=== PATIENT | female | born 1975 | race Caucasian/White ===

== ENCOUNTER 2019-05-12 11:51 | Emergency (ER) | payer MEDICAID ==
[~2019-05-12] VITALS: Ht 160 cm; Wt 120.2 kg
[2019-05-12 11:57] VITALS: BP_SYST 166
--- NOTE | 2019-05-12 12:03 | NUR ---
Patient to ER bed 5 to gown for evaluation. Side rails up. Report given to Colette BROCK.
--- NOTE | 2019-05-12 12:05 | NUR ---
Patient arrived in the ED c/o of mid-epigastric pain with nausea that started today. She stated she has history of hernia, and this time she was able to puch it back but it took a long time. a&o x4, VS WNL, respirations even and unlabored, denied any c/p or SOB. Able to speak in full sentences. Denied any respiratory distress at this time.
--- NOTE | 2019-05-12 12:10 | NUR ---
ER Dr. Day at bedside examining patient.
[2019-05-12] MEDS ORDERED: KETOROLAC TROMETHAMINE 30 MG VIAL IM ONE (12:15)
--- NOTE | 2019-05-12 12:41 | NUR ---
Administered Toradol 30mg IM as ordered by Dr. Day. Patient tolerated the medication well.
--- NOTE | 2019-05-12 12:44 | NUR ---
Urine specimen dropped off at the lab.
--- NOTE | 2019-05-12 12:52 | NUR ---
Patient off the unit for CT. In stable condition.
--- NOTE | 2019-05-12 12:55 | NUR ---
Report given and care transferred to Jamey Lyon RN.
--- NOTE | 2019-05-12 12:56 | NUR ---
Got report from Katharina.
--- NOTE | 2019-05-12 12:57 | NUR ---
Returned from radiology, back to [facility].
[2019-05-12 13:09] LABS: BILIRUBIN,URINE NEGATIVE (NEGATIVE); BLOOD, URINE 2+ (NEGATIVE); CLARITY/URINE HAZY (CLEAR); COLOR,URINE YELLOW (YELLOW); GLUCOSE,URINE NEGATIVE (NEGATIVE); KETONES,URINE NEGATIVE (NEGATIVE); LEUKOCYTE ESTERASE ,URINE NEGATIVE (NEGATIVE); NITRITE, URINE NEGATIVE (NEGATIVE); PH,URINE 5.5 (5.0-8.0); PROTEIN URINE NEGATIVE (NEGATIVE); UROBILINOGEN,URINE 0.2 (0.2-1.0)
[2019-05-12 13:19] LABS: BACTERIA,URINE FEW /HPF (None Seen); WBC,URINE 0-3 /HPF (0-3)
[2019-05-12 13:20] LABS: MUCUS,URINE 1+ /LPF (None Seen)
[2019-05-12 13:25] LABS: BASOPHILS % (AUTO) 0.5 % (0.0-2.0); EOSINOPHILS % (AUTO) 0.6 % (0.0-4.0); HEMATOCRIT 37.1 % (36-48); HEMOGLOBIN 12.7 g/dL (12.0-16.0); LYMPHOCYTES # (AUTO) 1.8 K/uL (1.0-5.5); LYMPHOCYTES % (AUTO) 22.8 % (20.5-51.5); MEAN CORPUSCULAR HEMOGLOBIN 31 pg (27-31); MEAN CORPUSCULAR HGB CONC 34 % (32-36); MEAN CORPUSCULAR VOLUME 90 fL (79.0-98.0); MONOCYTES # (AUTO) 0.3 K/uL (0.0-1.0); MONOCYTES % (AUTO) 4.4 % (1.7-9.3); NEUTROPHILS # (AUTO) 5.6 K/uL (1.8-7.7); NEUTROPHILS % (AUTO) 71.7 % (40.0-70.0); PLATELET COUNT (AUTO) 208 K/uL (130-430); RED BLOOD CELL COUNT(AUTO) 4.11 MIL/uL (4.2-6.2); RED CELL DISTRIBUTION WIDTH 13.6 % (9.0-15.0); WHITE BLOOD COUNT (AUTO) 7.8 K/uL (4.8-10.8)
[2019-05-12 13:30] LABS: CALCIUM 8.7 mg/dL (8.4-11.0); CREATININE 0.74 mg/dL (0.55-1.30); POTASSIUM 3.6 mmol/L (3.5-5.1)
[2019-05-12 13:34] LABS: ALBUMIN 3.6 g/dL (3.4-4.8); PROTHROMBIN TIME 9.9 SECS (9.5-12.5); TOTAL BILIRUBIN 0.7 mg/dL (0.0-1.0)
[2019-05-12 14:47] VITALS: BP_SYST 121
--- NOTE | 2019-05-12 14:47 | NUR ---
Patient given written and verbal discharge instructions and verbalizes understanding. ER MD discussed with patient the results and treatment provided. Patient in stable condition. ID arm band removed. Rx of Protonix and Zofran given. Patient educated on pain management and to follow up with PMD. Pain Scale 2/10 tolerable for pt . Opportunity for questions provided and answered. Medication side effect fact sheet provided.
== END 2019-05-12 14:47 | disposition home or self-care (01) ==
LOC: SED 11:51
DX: K43.9 Ventral hernia without obstruction or gangrene (principal); Z88.0 Allergy status to penicillin; Z90.49 Acquired absence of other specified parts of digestive tract; Z90.710 Acquired absence of both cervix and uterus
CPT/HCPCS: 36415; 74176; 80053; 81000; 81025; 83690; 84484; 85025; 85610; 85730; 93005; 96372; 99284; J1885